=== PATIENT | female | born 1945 | race Caucasian/White ===

== ENCOUNTER 2017-04-08 22:13 | Observation (INO) | payer MEDICARE, OTHER ==
[~2017-04-08] VITALS: Ht 154.9 cm; Wt 49.4 kg
[2017-04-08] MEDS ORDERED: VOLTAREN 0.1%2.5 ML TOP (23:06)
[2017-04-08] MEDS ORDERED: TYLENOL 325MG325 MG PO (23:07)
[2017-04-08] MEDS ORDERED: BUTALB-ACETAMI1 EACH PO (23:08)
[2017-04-08] MEDS ORDERED: MELOXICAM15 MG PO (23:08)
[2017-04-08] MEDS ORDERED: LORTAB 5-325 M1 EACH PO (23:09)
[2017-04-08] MEDS ORDERED: KLONOPIN TAB 00.5 MG PO (23:09)
[2017-04-08] MEDS ORDERED: SIMVASTATIN20 MG PO (23:10)
[2017-04-08] MEDS ORDERED: NEURONTIN 400400 MG PO (23:10)
[2017-04-08] MEDS ORDERED: OMEPRAZOLE20 MG PO (23:11)
[2017-04-08] MEDS ORDERED: VENTOLIN/PROVE0.5 ML INH (23:11)
[2017-04-08] MEDS ORDERED: ZANAFLEX 4 MG TA4 MG PO (23:12)
[2017-04-09 07:12] LABS: RED BLOOD COUNT 4.42 M/UL (4.00-5.10); WHITE BLOOD COUNT 5.9 K/UL (4.5-11.0)
[2017-04-09 07:27] LABS: BUN/CREATININE RATIO 10 (0-10)
== END 2017-04-09 21:15 | disposition home or self-care (01) ==
LOC: CCU 22:13
PROVIDERS: ADMIT Internal Medicine
DX: I95.9 Hypotension, unspecified (principal); R00.1 Bradycardia, unspecified; I25.10 Atherosclerotic heart disease of native coronary artery without angina pectoris; M19.90 Unspecified osteoarthritis, unspecified site; F17.210 Nicotine dependence, cigarettes, uncomplicated; Z86.73 Personal history of transient ischemic attack (TIA), and cerebral infarction without residual deficits; Z79.1 Long term (current) use of non-steroidal anti-inflammatories (NSAID); Z79.891 Long term (current) use of opiate analgesic; Z79.899 Other long term (current) drug therapy; Z95.1 Presence of aortocoronary bypass graft
CPT/HCPCS: ECHO; 36415; 71020; 78452; 80053; 80061; 83880; 84484; 85025; 93017; 93306; A9502; G0378; G0379